=== PATIENT | male | born 1960 | race Caucasian/White ===

== ENCOUNTER 2022-06-12 03:50 | Observation (INO) | payer MEDICARE, MEDICAID, SELFPAY ==
[2022-06-12] VITALS (9 sets, daily range): BP systolic 127–194; BP diastolic 69–107; PULSE 58–79; RESP 15–18; TEMP 36.1–37.6; O2SAT 93–99; BMI 26.6
--- NOTE | ~2022-06-12 | XR_ITS ---
EXAMINATION: XR retrograde pyelogram LT DATE: 06/12/2022 16:23 INDICATION: Left internal ureteral stent placement TECHNIQUE: Fluoroscopic images from a left internal ureteral stent placement are submitted for review . 46 seconds of fluoroscopy time. A fluoroscopic images FINDINGS: There is a left double-J internal ureteral stent projecting in expected position, with proximal [place] loop at the level of the renal pelvis and distal loop in the pelvis within the bladder lumen. IMPRESSION: 1. Left internal ureteral stent placement. Please refer to real-time procedural findings for detail s. Reviewed, dictated and finalized at location A. IMPRESSION: 1. Left internal ureteral stent placement. Please refer to real-time procedur al findings for details.
--- NOTE | 2022-06-12 04:01 | ECG_ITS ---
Measurements Intervals [place] Rate: 66 P: 46 SD: 160 QRS: 60 QRSD: 90 T: 79 QT: 396 QTc: 417 Interpretive Statements SINUS RHYTHM BORDERLINE T WAVE ABNORMALITY- HIGH LATERAL LEADS BASELINE ARTIFACT- V2 BORDERLINE ECG Electronically Signed On 06-12-2022 10:37:29 CDT by Buster Vargas D.O.
[2022-06-12] MEDS: DEXTROSE 5%/0.45% SOD CHL 1,000 ML 100 ML IV CONT (04:22)
[2022-06-12] MEDS: HYDROmorphone HCL INJ (*CRX) 1 MG/ML SYR IV PUSH ×4 (04:31→13:40)
[2022-06-12 06:10] LABS: Anion Gap 11 mmol/L (8-16); Blood Urea Nitrogen 25 mg/dL (9-20); Calcium 9.4 mg/dL (8.4-10.2); Carbon Dioxide 24 mmol/L (22-30); Chloride 101 mmol/L (98-107); Estimated CRCL calculation 35 ml/min; Estimated Glomerular Filt Rate 36; Glucose 183 mg/dL (65-110); Potassium 4.4 mmol/L (3.4-5.0); Sodium 136 mmol/L (137-145)
[2022-06-12 06:12] LABS: Partial Thromboplastin Time 28.2 SECONDS (22.3-36.8)
[2022-06-12 07:39] LABS: Basophils Absolute Auto 0.1 K/mm3 (0.0-0.1); Basophils Percent Auto 0.3 % (0.2-1.2); Eosinophils Percent Auto 0.3 % (0-4.4); Hematocrit 44.9 % (42.0-52.0); Hemoglobin 14.7 g/dL (14.0-18.0); Immature Granulocyte Absolute 0.07 K/mm3 (0.00-0.031); Immature Granulocyte Percent A 0.4 % (0-0.5); Lymphocytes Absolute Auto 1.59 K/mm3 (0.9-3.2); Lymphocytes Percent Auto 9.9 % (18.3-44.2); Mean Corpuscular HGB Conc 32.7 g/dl (32-36); Mean Corpuscular Hemoglobin 31.5 pg (26-34); Mean Corpuscular Volume 96.4 fl (80-100); Mean Platelet Volume 10.6 fl (7.4-10.4); Monocytes Absolute Auto 1.6 K/mm3 (0.1-0.6); Monocytes Percent Auto 10.1 % (2.6-8.5); Neutrophils Absolute Auto 12.6 K/mm3 (1.3-6.7); Platelet Count Result 334 k/mm3 (150-375); Red Blood Count 4.66 M/mm3 (4.6-6.20); Red Cell Distribution Width 13.1 % (11.5-14.5)
[2022-06-12 07:55] LABS: Alanine Aminotransferase 28 U/L (6-50); Albumin Level 4.3 g/dL (3.5-5.1); Alkaline Phosphatase 161 U/L (38-126); Anion Gap 13 mmol/L (8-16); Aspartate Amino Transferase 45 U/L (17-59); Bilirubin,Total 0.5 mg/dL (0.2-1.3); Blood Urea Nitrogen 26 mg/dL (9-20); Calcium 9.5 mg/dL (8.4-10.2); Carbon Dioxide 22 mmol/L (22-30); Chloride 101 mmol/L (98-107); Estimated CRCL calculation 35 ml/min; Estimated Glomerular Filt Rate 36; Glucose 182 mg/dL (65-110); Potassium 4.4 mmol/L (3.4-5.0); Sodium 136 mmol/L (137-145)
--- NOTE | 2022-06-12 08:38 | PM.IMHP ---
H&P: HPI History of Present Illness Date/Time: 06/12/22 08:38 Chief Complaint: abdominal pain Narrative: Pt is a 61 yo male w/ hx of HTN, renal cell carcinoma s/p R nephrectomy 2015, PUD, bipolar disorder, neuropathy, alcoholism (quit 2013), who presented to the ED for evaluation of abdominal pain. He states yesterday morning he developed a generalized abdominal pain which he describes as a constant cramping sensation. This morning the pain began radiating to his L flank. He rates his pain as 10/10 currently despite receiving Dilaudid this AM. He reports nausea w/ 1 episode of emesis yesterday. He also had an episode of diarrhea yesterday after drinking some milk of magnesia at home. No fevers, chills, body aches. He states he has been unable to pee since yesterday. In the ER last night they did a straight cath with a small amount of urine removed, but he has been unable to pee since that time. No dysuria or hematuria. Pt had an abdominal CT at [facility] in [place] last night which showed mild left hydronephrosis to the UVJ where there is a 5 mm calculus present. Pt was transferred to our services as a direct admit under observation status. Review of Systems Review of Systems: General: Denies fevers Eyes: Denies vision changes ENT: Denies nasal congestion or sore throat Respiratory: Denies cough or shortness of breath Cardiovascular: Denies chest pain or lower extremity edema Gastrointestinal: + abdominal pain, + vomiting, + diarrhea Genitourinary: Denies dysuria, + retention Musculoskeletal: + back pain Neurological: Denies headache or motor weakness Integumentary: Denies rash PMFSH Past Medical History Medical History (Updated 06/12/22 @ 09:12 by Cinthya Sorenson PA-C) Alcohol abuse quit in 2013 Bipolar 1 disorder Hypertension Neuropathy PUD (peptic ulcer disease) Renal cell carcinoma s/p R nephrectomy 2016 Surgical History Surgical History (Updated 06/12/22 @ 08:52 by Cinthya Sorenson PA-C) H/O right nephrectomy History of appendectomy History of cholecystectomy History of inguinal hernia repair History of lumbar discectomy Social History Social History (Updated 06/12/22 @ 09:00 by Cinthya Sorenson PA-C) Social History: lives alone, his mother Katherine is his POA, he wishes to remain DNR status - states his mother has this paperwork Smoking packs per day: 2 Smoking cigarettes per day: 40.0 Years smoked: 30 Smoking pack-years: 60.00 Smoking status: Current every day smoker Tobacco type: cigarettes Alcohol intake: former Alcohol use details: quit in 2013 Substance use: current Substance use type: marijuana Living arrangements: alone Additional occupation/education comments: disabled on social security Spiritual care concerns: No Meds Home Medications and Allergies Home Medications Medication Instructions Recorded Confirmed Type amlodipine 10 mg tablet 10 mg PO DAILY 06/12/22 06/12/22 History carbamazepine 200 mg tablet 200 mg PO DAILY 06/12/22 06/12/22 History donepezil 10 mg tablet 10 mg PO BID 06/12/22 06/12/22 History lamotrigine 200 mg tablet 200 mg PO TID 06/12/22 06/12/22 History losartan 100 mg tablet 100 mg PO DAILY 06/12/22 06/12/22 History memantine 10 mg tablet 10 mg PO BID 06/12/22 06/12/22 History venlafaxine 150 mg 150 mg PO TID 06/12/22 06/12/22 History capsule,extended release 24 hr Allergies Allergy/AdvReac Type Severity Reaction Status Date / Time No Known Allergies Allergy Unverified 07/12/16 13:23 Vital Signs Vital Signs - 24 hr 06/12/22 03:58 06/12/22 06:01 06/12/22 08:00 Temperature 97.3 F L 97.6 F 97.4 F L Pulse Rate 79 67 79 Respiratory Rate 18 16 16 Blood Pressure 194/107 H 172/98 H 181/97 H Pulse Oximetry 97 94 97 06/12/22 04:14 Temperature 97.3 F L Pulse Rate 79 Respiratory Rate 18 Blood Pressure 194/107 H Pulse Oximetry 97 Exam Narrative: General: No acute distress,
[2022-06-12 10:04] LABS: Appearance Urine Slightly Cloudy (Clear); Bilirubin Urine Negative (Negative); Blood Urine 3+ (Negative); Color Urine Yellow (Yellow); Glucose Urine UA Negative (Negative); Ketones Urine Negative (Negative); Leukocyte Esterase Ur Trace LEU/UL (Negative); Nitrate Urine Negative (Negative); Protein Urine Trace mg/dL (Negative); Urobilinogen Urine 0.2 mg/dL (<2.0)
[2022-06-12 10:08] LABS: Bacteria Urine Trace /hpf; RBC Urine 51-75 /hpf (0-2); WBC Urine 16-20 /hpf
[2022-06-12 10:11] LABS: Add Urine Microscopic? YES
--- NOTE | 2022-06-12 10:11 | WPDURCON ---
Assessment and Plan Assessment and plan (1) JOSEPH (acute kidney injury): Code(s): N17.9 - Acute kidney failure, unspecified Status: Acute Assessment and Plan: Secondary to obstructing left ureteral stone and solitary kidney. Will continue to monitor s/p stone removal/stent placement. I expect it to return to normal. (2) Leukocytosis: Code(s): D72.829 - Elevated white blood cell count, unspecified Status: Acute Assessment and Plan: Will start IV antibiotics and collect urine for culture d/t leukocytes in UA at [facility] ER. (3) Nephrolithiasis: Code(s): N20.0 - Calculus of kidney Status: Acute Assessment and Plan: Obtain Consent: Cystoscopy, left ureteroscopy with stone extraction, left stent placement, left retrograde pyelogram, possible holmium laser. Keep NPO. Plan to go to the OR this afternoon with Dr. Mares. Urology Consult Note HPI Date Seen: 06/12/22 Time Seen: 09:00 Requesting Physician: Cinthya Sorenson PA-C Primary Care Provider: Luigi Macias, Consult Narrative Reason for consult: Left UVJ stone Narrative: Julio Whitney is a 61 year old male who was transferred here from [facility] today. He has a history of right renal cell carcinoma with nephrectomy in 06/[address] Matos and we were asked to see him for findings of a left 5mm UVJ stone on CT from [facility] in [facility] ER earlier today. He has a rising creatinine of 1.90 from his baseline of 1.00, WBC 16, UA does suggest a possible UTI, however he denies dysuria, hematuria, frequency or urgency. He states he has had left flank pain and LLQ pain intermittently for 1 year but it became so severe last night he had his mother bring him to the ER. He states the pain originates in his LLQ and radiates to his left flank which is accompanied by nausea and vomiting. A new culture will be sent here for reflex to culture. He is afebrile at this time. He also c/o inability to urinate, therefore he will be getting a bladder scan to further assess. He was placed on Tamsulosin in the ER at [facility]. Review of Systems Cardiovascular: Cardiovascular: Denies chest pain Respiratory: Respiratory: Reports no additional respiratory complaints Gastrointestinal: Gastrointestinal: Reports abdominal pain, Reports nausea and Reports vomiting Genitourinary: Genitourinary: Denies hematuria, Denies dysuria, Reports flank pain, Denies urinary frequency and Reports urinary hesitancy PMFSH Past Medical History Medical History Alcohol abuse quit in 2013 Bipolar 1 disorder Hypertension Neuropathy PUD (peptic ulcer disease) Renal cell carcinoma s/p R nephrectomy 2015 Surgical History Surgical History H/O right nephrectomy History of appendectomy History of cholecystectomy History of inguinal hernia repair History of lumbar discectomy Social History Social History Social History: lives alone, his mother Katherine is his POA, he wishes to remain DNR status - states his mother has this paperwork Smoking packs per day: 2 Smoking cigarettes per day: 40.0 Years smoked: 30 Smoking pack-years: 60.00 Smoking status: Current every day smoker Tobacco type: cigarettes Alcohol intake: former Alcohol use details: quit in 2013 Substance use: current Substance use type: marijuana Living arrangements: alone Additional occupation/education comments: disabled on social security Spiritual care concerns: No Meds Home Medications and Allergies Home Medications Medication Instructions Recorded Confirmed Type amlodipine 10 mg tablet 10 mg PO DAILY 06/12/22 06/12/22 History carbamazepine 200 mg tablet 200 mg PO DAILY 06/12/22 06/12/22 History donepezil 10 mg tablet 10 mg PO BID
--- NOTE | 2022-06-12 12:24 | WPDANESEPP ---
Anes - Eval Pre Procedure Procedure: Operation Date: 06/12/22 15:30 Proposed Procedures p Cystoscopy, Left Ureteroscopy, Possible Left Retrograde Pyelogram, Possible Left Stone Extraction, Possible Left Stent Placement, Possible Holmium Laser Procedure - Isaías Mares MD Date/Time: 06/12/22 12:24 Pre Op Diagnosis: Urolithiasis Patient Data Age: 61 Gender: M Height: 1.7 m Weight: 77.2 kg Last Vital Signs Temp 36.3 C L 06/12/22 08:00 Pulse 79 06/12/22 08:00 Resp 16 06/12/22 08:00 BP 181/97 H 06/12/22 08:00 Pulse Ox 97 06/12/22 08:00 Allergies Allergy/AdvReac Type Severity Reaction Status Date / Time No Known Allergies Allergy Unverified 07/12/16 13:23 Home Medications Medication Instructions Recorded Confirmed Type amlodipine 10 mg tablet 10 mg PO DAILY 06/12/22 06/12/22 History carbamazepine 200 mg tablet 200 mg PO DAILY 06/12/22 06/12/22 History donepezil 10 mg tablet 10 mg PO BID 06/12/22 06/12/22 History lamotrigine 200 mg tablet 200 mg PO TID 06/12/22 06/12/22 History losartan 100 mg tablet 100 mg PO DAILY 06/12/22 06/12/22 History memantine 10 mg tablet 10 mg PO BID 06/12/22 06/12/22 History venlafaxine 150 mg 150 mg PO TID 06/12/22 06/12/22 History capsule,extended release 24 hr Laboratory Tests 06/12/22 06/12/22 06/12/22 05:29 05:30 05:32 WBC 16.0 K/mm3 H K/mm3 (4.5-10.0) RBC 4.66 M/mm3 M/mm3 (4.6-6.20) Hgb 14.7 g/dL g/dL (14.0-18.0) Hct 44.9 % % (42.0-52.0) MCV 96.4 fl fl (80-100) MCH 31.5 pg pg (26-34) MCHC 32.7 g/dl g/dl (32-36) RDW 13.1 % % (11.5-14.5) Plt Count 334 k/mm3 k/mm3 (150-375) MPV 10.6 fl H fl (7.4-10.4) Immature Gran % (Auto) 0.4 % % (0-0.5) Neut % (Auto) 79.0 % H % (45.5-73.1) Lymph % (Auto) 9.9 % L % (18.3-44.2) [place] % (Auto) 10.1 % H % (2.6-8.5) Eos % (Auto) 0.3 % % (0-4.4) Baso % (Auto) 0.3 % % (0.2-1.2) Lymph # (Auto) 1.59 K/mm3 K/mm3 (0.9-3.2) [place] # (Auto) 1.6 K/mm3 H K/mm3 (0.1-0.6) Eos # (Auto) 0.0 K/mm3 K/mm3 (0-0.3) Baso # (Auto) 0.1 K/mm3 K/mm3 (0.0-0.1) Abs Immat Gran (auto) 0.07 K/mm3 H K/mm3 (0.00-0.031) Absolute Neuts (auto) 12.6 K/mm3 H K/mm3 (1.3-6.7) Absolute Nucleated RBC 0.0 K/mm3 K/mm3 (0.0-0.012) Nucleated RBC % 0.0 % % (0.0-0.2) APTT 28.2 SECONDS SECONDS (22.3-36.8) Sodium 136 mmol/L L mmol/L (137-145) Potassium 4.4 mmol/L mmol/L (3.4-5.0) Chloride 101 mmol/L mmol/L (98-107) Carbon Dioxide 22 mmol/L mmol/L (22-30) Anion Gap 13 mmol/L mmol/L (8-16) BUN 26 mg/dL H mg/dL (9-20) Creatinine 1.90 mg/dL H mg/dL (0.7-1.3) Estim Creat Clear Calc 35 ml/min ml/min Estimated GFR 36 L (59 - ) Glucose 182 mg/dL H mg/dL (65-110) Calcium 9.5 mg/dL mg/dL (8.4-10.2) Total Bilirubin 0.5 mg/dL mg/dL (0.2-1.3) AST 45 U/L U/L (17-59) ALT 28 U/L U/L (6-50) Alkaline Phosphatase 161 U/L H U/L (38-126) Total Protein 7.0 g/dL g/dL (6.3-8.2) Albumin 4.3 g/dL g/dL (3.5-5.1) Urine Color Urine Appearance Urine pH Ur Specific [place] Urine Protein Urine Glucose (UA) Urine Ketones Ur Blood (Man) Urine Nitrate Urine Bilirubin Urine Urobilinogen Leukocyte Esterase Rfl Urine RBC Urine WBC Urine Bacteria 06/12/22 06/12/22 05:32 09:54 WBC RBC Hgb Hct MCV MCH MCHC RDW Plt Count MPV Immatu
--- NOTE | 2022-06-12 14:19 | WPDANESEPPF ---
Anes - Initial Pre Proc Eval Procedure: Operation Date: 06/12/22 15:30 Proposed Procedures p Cystoscopy, Left Ureteroscopy, Possible Left Retrograde Pyelogram, Possible Left Stone Extraction, Possible Left Stent Placement, Possible Holmium Laser Procedure - Isaías Mares MD Date/Time: 06/12/22 14:19 Surgeon: Cinthya Sorenson PA-C Pre Op Diagnosis: Urolithiasis Patient Data Age: 61 Gender: M Height: 1.7 m Weight: 77.2 kg Last Vital Signs Temp 36.1 C L 06/12/22 12:49 Pulse 68 06/12/22 12:49 Resp 18 06/12/22 12:49 BP 156/89 H 06/12/22 12:49 Pulse Ox 93 06/12/22 12:49 Allergies Allergy/AdvReac Type Severity Reaction Status Date / Time No Known Allergies Allergy Unverified 06/12/22 14:28 Home Medications Medication Instructions Recorded Confirmed Type amlodipine 10 mg tablet 10 mg PO DAILY 06/12/22 06/12/22 History carbamazepine 200 mg tablet 200 mg PO DAILY 06/12/22 06/12/22 History donepezil 10 mg tablet 10 mg PO BID 06/12/22 06/12/22 History lamotrigine 200 mg tablet 200 mg PO TID 06/12/22 06/12/22 History losartan 100 mg tablet 100 mg PO DAILY 06/12/22 06/12/22 History memantine 10 mg tablet 10 mg PO BID 06/12/22 06/12/22 History venlafaxine 150 mg 150 mg PO TID 06/12/22 06/12/22 History capsule,extended release 24 hr Laboratory Tests 06/12/22 06/12/22 06/12/22 05:29 05:30 05:32 WBC 16.0 K/mm3 H K/mm3 (4.5-10.0) RBC 4.66 M/mm3 M/mm3 (4.6-6.20) Hgb 14.7 g/dL g/dL (14.0-18.0) Hct 44.9 % % (42.0-52.0) MCV 96.4 fl fl (80-100) MCH 31.5 pg pg (26-34) MCHC 32.7 g/dl g/dl (32-36) RDW 13.1 % % (11.5-14.5) Plt Count 334 k/mm3 k/mm3 (150-375) MPV 10.6 fl H fl (7.4-10.4) Immature Gran % (Auto) 0.4 % % (0-0.5) Neut % (Auto) 79.0 % H % (45.5-73.1) Lymph % (Auto) 9.9 % L % (18.3-44.2) [place] % (Auto) 10.1 % H % (2.6-8.5) Eos % (Auto) 0.3 % % (0-4.4) Baso % (Auto) 0.3 % % (0.2-1.2) Lymph # (Auto) 1.59 K/mm3 K/mm3 (0.9-3.2) [place] # (Auto) 1.6 K/mm3 H K/mm3 (0.1-0.6) Eos # (Auto) 0.0 K/mm3 K/mm3 (0-0.3) Baso # (Auto) 0.1 K/mm3 K/mm3 (0.0-0.1) Abs Immat Gran (auto) 0.07 K/mm3 H K/mm3 (0.00-0.031) Absolute Neuts (auto) 12.6 K/mm3 H K/mm3 (1.3-6.7) Absolute Nucleated RBC 0.0 K/mm3 K/mm3 (0.0-0.012) Nucleated RBC % 0.0 % % (0.0-0.2) APTT 28.2 SECONDS SECONDS (22.3-36.8) Sodium 136 mmol/L L mmol/L (137-145) Potassium 4.4 mmol/L mmol/L (3.4-5.0) Chloride 101 mmol/L mmol/L (98-107) Carbon Dioxide 22 mmol/L mmol/L (22-30) Anion Gap 13 mmol/L mmol/L (8-16) BUN 26 mg/dL H mg/dL (9-20) Creatinine 1.90 mg/dL H mg/dL (0.7-1.3) Estim Creat Clear Calc 35 ml/min ml/min Estimated GFR 36 L (59 - ) Glucose 182 mg/dL H mg/dL (65-110) Calcium 9.5 mg/dL mg/dL (8.4-10.2) Total Bilirubin 0.5 mg/dL mg/dL (0.2-1.3) AST 45 U/L U/L (17-59) ALT 28 U/L U/L (6-50) Alkaline Phosphatase 161 U/L H U/L (38-126) Total Protein 7.0 g/dL g/dL (6.3-8.2) Albumin 4.3 g/dL g/dL (3.5-5.1) Urine Color Urine Appearance Urine pH Ur Specific [place] Urine Protein Urine Glucose (UA) Urine Ketones Ur Blood (Man) Urine Nitrate Urine Bilirubin Urine Urobilinogen Leukocyte Esterase Rfl Urine RBC Urine WBC Urine Bacteria 06/12/22 06/12/22 05:32 09:54 WBC RBC Hgb Hct MCV MCH MCHC RDW
[2022-06-12] MEDS: LACTATED RINGERS 1,000 ML 30 ML IV CONT (14:25)
[2022-06-12] MEDS: fentaNYL CITRATE INJ (*CRX) 100 MCG/2 ML VIAL 50 MCG IV PUSH (15:00)
[2022-06-12] MEDS: ONDANSETRON INJ 4 MG/2 ML VIAL IV PUSH (15:06)
--- NOTE | 2022-06-12 15:24 | WPDHPUPDATE1 ---
History and Physical Update Update Date/Time: 06/12/22 15:24 History and Physical has been reviewed, including an updated exam of the patient. There are NO changes in the patient's condition. Risks, benefits, and alternatives have been discussed and questions answered. Patient agrees to proceed with procedure.
[2022-06-12] MEDS: LIDOCAINE HCL 2% GEL UROJET 10 ML PKG MUCOUS MEM (15:57)
--- NOTE | 2022-06-12 16:03 | P.OP_ITS ---
Procedure Note - Detailed Date of Procedure 06/12/22 Pre-op Diagnosis Left distal ureteral stone in solitary kidney Post-op Diagnosis Same Procedure Performed Cystoscopy, left ureteroscopy, left ureteral stone extraction, retrograde pyelog karis, stent insertion Surgeon Isaías Mares MD Indications 61-year-old gentleman with history of renal cell cancer status post right nephrectomy who presents with obstructing left ureteral stone in his solitary left kidney with associated acute renal insufficiency Findings Impacted distal left ureteral stone removed. Irritation of distal ureter at the area of stone impaction. Description of Procedure Informed consent was obtained. Patent the operative. He was given preoperative IV antibiotics on the floor. He was not anesthesia. He was prepped and draped in normal sterile fashion. A 22 F rigid cystoscope inserted through the urethra into the bladder. The patient had mild bilobar prostatic hyperplasia. His bladder was normal bilateral orthotopic ureteral orifices. We cannulated the left ureteral orifice with a wire and then dilated with an 810 coaxial dilator. There was mild resistance at the area of the impacted stone. We then advanced a semi rigid ureteral scope into the distal ureter and approximately 2cm above the ureterovesical junction identified an area of irritation consistent with stone impaction with a stone present just proximal to area of inflammation. The stone was grasped with a ZeroTip basket and removed in 1 piece. Stones sent as specimen. We then readvanced the ureteral scope into the distal ureter and there were no residual stones seen. Retrograde pyelogram revealed some tortuosity of the ureter without filling defect or extravasation. There was [id number] left hydronephrosis with mild extravasation consistent with known obstructive. Over wire a 6 F variable length stent was placed with a curl in the upper pole from the bladder. The bladder was emptied. 10cc of viscous lidocaine were instilled the patient was awakened taken recovery stable condition Implants A 6 F variable length ureteral stent was inserted. Given the inflammation/irritation at area of stone impaction, I recommend stent be left in place for 2 weeks. A renal ultrasound should be performed 2 to 3 weeks after ureteral stent is removed to ensure there is no postprocedural obstruction/hydronephrosis. Urine Output 100 Pathology Yes Complications No immediate complications Condition Stable Disposition PACU
[2022-06-12] MEDS: MIDAZOLAM HCL (*CRX) 2 MG/2 ML VIAL IV PUSH (16:20)
--- NOTE | 2022-06-12 17:00 | PC.NURSE ---
RN arrived to patient's room upon his return from OR to find patient putting on his street clothes. PCT informed RN patient stated he was going home . RN confirmed with patient that he was wanting to sign out against medical advice and patient stated that he was going home no matter what, even if I have to walk home. My brother will take me home and if he won't then I'll walk . RN asked patient why he wanted to leave and he stated, I'm a messed up individual, I've been one all my life and I just need to go home . RN explained to patient that he would not be given any pain medication if he chose to leave against medical advice and patient stated, What am I gonna do here, lay around? Patient verbalized understanding and confirmed he wanted to leave against medical advice. While RN was in patient's room she received a phone call from patient's brother, Romeo. Romeo stated he would prefer if patient would stay until discharged from provider and RN stated she agreed that it would be in patient's best interest to stay, but patient was free to leave if he chose. RN removed IV access while speaking with Romeo, patient walked out of room once dressing placed over previous IV site. RN walked with him down the [place] while simultaneously speaking with Romeo who stated he would pickle solution maker the patient but it would take him approximately 30 minutes to get here. Patient responded with whatever and continued to walk towards the exit. Romeo stated he was on his way and patient told him to meet me on the corner and proceeded to leave the unit.
--- NOTE | 2022-06-12 17:00 | SUR.PHASEI ---
1630 - pt began removing all monitors and clothes. got off of stretcher attempting to walk accross room. throwing punches at staff. directed pt to get back on stretcher. Verbally abusive. security called for assistance. they observed pt and staff as got pt i bed. told pt was going to his room , then he physically calmed down but remained verbally abusive.
--- NOTE | 2022-08-14 11:54 | WPDUROPN2 ---
Subjective Subjective Date/Time Seen: 08/14/22 11:54 Patient left AMA. See nurses note for details. Objective Data Meds/Results Radiology Results: ITS Impressions Retrograde Pyelogram 06/12/22 16:28 IMPRESSION: 1. Left internal ureteral stent placement. Please refer to real-time procedural findings for details.
== END 2022-06-12 17:10 | disposition left against medical advice (07) ==
PROVIDERS: Urology; Admitting Provider Internal Medicine; PCP Orthopaedic Surgery; Visit Provider Physician Assistant
PROC: (CPT 52352; principal; 2022-06-12 15:30)
DX: N13.2 Hydronephrosis with renal and ureteral calculous obstruction (principal); N17.9 Acute kidney failure, unspecified; R82.90 Unspecified abnormal findings in urine; R33.9 Retention of urine, unspecified; D72.829 Elevated white blood cell count, unspecified; Z90.5 Acquired absence of kidney; Z85.528 Personal history of other malignant neoplasm of kidney; I10 Essential (primary) hypertension; G62.9 Polyneuropathy, unspecified; F31.9 Bipolar disorder, unspecified; F17.210 Nicotine dependence, cigarettes, uncomplicated; F12.90 Cannabis use, unspecified, uncomplicated; F10.10 Alcohol abuse, uncomplicated; Z87.11 Personal history of peptic ulcer disease
CPT/HCPCS: 52332; 52352; 36415; 74420; 80048; 80053; 81001; 82365; 85025; 85730; 87086; 88300; 93005; 96365; 96375; 96376; A9270; C1769; C2617; G0378; G0379; J0696; J1100; J1170; J2250; J2405; J2704; J3010; J7120